=== PATIENT | female | born 1975 | race Caucasian/White ===

== ENCOUNTER 2023-05-18 04:34 | Emergency (ER) | payer OTHER, SELFPAY ==
[2023-05-18 04:38] VITALS: BP 159/100; PULSE 85; RESP 18; TEMP 35.7; O2SAT 99; BMI 25.1
--- NOTE | 2023-05-18 04:49 | ED_ITS ---
HPI - Extremity Problem General Chief complaint: Extremity Problem, Nontraumatic Stated complaint: SHOULDER PAIN Time Seen by Provider: 05/18/23 04:45 Source: patient Mode of arrival: walk-in Limitations: no limitations History of Present Illness HPI Narrative: presents complaining of pain left arm for past 4 days. Pain radiating from her neck down her left arm. Constant for past 4 days. not able to sleep tonight because of the pain. No associated weakness or chest pain/nausea. Not able to get comfortable tonight and came in no fever Related Data Home Medications Medication Instructions Recorded Confirmed No Known Home Medications 05/18/23 05/18/23 Allergies Allergy/AdvReac Type Severity Reaction Status Date / Time Penicillins Allergy Verified 05/18/23 04:42 Review of Systems ROS Status of ROS 10 or more systems reviewed and unremark able except as noted in history and below [facility] Social History Smoking status: Current every day smoker Exam Constitutional Vital Signs, click to edit/add: Last Vital Signs Temp 96.3 F L 05/18/23 04:38 Pulse 85 05/18/23 04:38 Resp 18 05/18/23 04:38 BP 159/100 H 05/18/23 04:38 Pulse Ox 99 05/18/23 04:38 O2 Del Method Room Air 05/18/23 04:38 Common normals: no apparent distress, average body habitus, oriented x3, no limitations, healthy appearing, alert and well nourished [facility] Common normals: normocephalic and head/scalp atraumatic Eye Common normals: PERRL and EOMs intact bilaterally Neck & C-Spine Other: mild tenderness left paracervical Respiratory Common normals: normal respiratory effort, no retractions, no use of accessory muscles and clear to auscultation bilaterally Cardio Common normals: regular rate, regular rhythm, S1 normal heart sound and S2 normal heart sound GI Common normals: Normal to inspection, nondistended, normoactive bowel sounds present and soft to palpation Extremity Common normals: normal to inspection and full ROM Neuro Common normals: oriented x3, CN's II-XII intact bilaterally, moves all extremities, no focal motor deficits and no sensory deficits noted Psych Appearance: grossly normal Course Vital Signs Vital signs: Vital Signs Temperature 96.3 F L 05/18/23 04:38 Pulse Rate 85 05/18/23 04:38 Respiratory Rate 18 05/18/23 04:38 Blood Pressure 159/100 H 05/18/23 04:38 Pulse Oximetry 99 05/18/23 04:38 Oxygen Delivery Method Room Air 05/18/23 04:38 Temperature 96.3 F L 05/18/23 04:38 Pulse Rate 85 05/18/23 04:38 Respiratory Rate 18 05/18/23 04:38 Blood Pressure 159/100 H 05/18/23 04:38 Pulse Oximetry 99 05/18/23 04:38 Oxygen Delivery Method Room Air 05/18/23 04:38 MDM - Extremity (Nontraumatic) MDM Narrative Medical decision making narrative: presents with left cervical radicular pain ongoing for past 4 days. No associated weakness. Burning pain. Treated with IV magnesium which help her to relax some but no significant improvement in the pain. labs unremarkable including inflammatory marker. Given dose of Lyrica and discharged home with a prescription for Lyrica and advised to followup with a family doctor Lab Data Labs: Lab Results 05/18/23 Range/Units 05:00 WBC 7.4 (4.0-11.0) 10^3/uL RBC 5.07 (4.20-5.40) 10^6/uL Hgb 16.3 H (12.0-16.0) g/dL Hct 48.6 H (36.0-48.0) % MCV 95.9 (81.0-99.0) fL MCH 32.1 (26.7-34.0) pg MCHC 33.5 (29.9-35.2) g/dL RDW 11.8 (11.0-15.0) % Plt Count 150 (150-450) 10^3/uL MPV 9.9 (9.5-13.5) fL Neut % (Auto) 70.9 (43.0-75.0) % Lymph % (Auto) 22.6 (20.5-60.0) % [place] % (Auto) 4.6 (1.7-12.0) % Eos % (Auto) 1.4 (0.9-7.0) % Baso % (Auto) 0.4 (0.2-2.0) % Neut # (Auto) 5.2 (1.4-6.5) 10^3/uL Lymph # (Auto) 1.7 (1.2-3.8) 10^3/uL [place] # (Auto) 0.3 (0.3-0.8) 10^3/uL Eos # (Auto) 0.1 (0.0-0.7) 10^3/uL Baso # (Auto) 0.0 (0.0-0.1) 10^3/uL Abs Immat Gran (auto) 0.01 (0.00-0.03) 10^3/uL Imm/Tot Granulo (auto) 0.1 (0.0-0.5) % Sodium 140 (136-145) mmol/L Potassium 4.3 (3.5-5.1) mmol/L Chloride 101 (98-107) mmol/L Carbon Dioxide 24.5 (21.0-32.0) mmol/L Anion Gap 18.8 BUN 14.0 (7.0-18.0) mg/dL Creatinine 0.85 (0.55-1.02) mg/dL Est GFR ( Amer) >60 (>=60) Est GFR (Non-Af Amer) >60 (>=60) BUN/Creatinine Ratio 16.5 Glucose 119 H (74-106) mg/dL Calcium 9.4 (8.5-10.1) mg/dL Magnesium 1.9 (1.8-2.4) mg/dL C-Reactive Protein <0.50 (<=0.50) mg/dL Discharge Plan Discharge Chief Complaint: Extremity Problem, Nontraumatic Clinical Impression: Cervical radiculopathy Patient Disposition: Home, Self-Care Condition: Good Prescriptions / Home Meds: No Action No Known Home Medications Instructions: Cervical Radiculopathy (ED) Additional Instructions: Follow up with Dr Kait Gutierrez twice daily. Referrals: Luis Armando Carballo MD [Physician] - As soon as possible Stand Alone Forms: Portal Instructions
[2023-05-18] MEDS: METHYLPREDNISOLONE SOD SUCC PF 125 MG/2 ML VIAL IVP (05:05)
[2023-05-18] MEDS: MAGNESIUM SULFATE IN WATER 2 GM/50 ML PREMIX IV (05:05)
[2023-05-18 05:08] LABS: Basophils Percent Auto 0.4 % (0.2-2.0); Eosinophils Absolute Auto 0.1 10^3/uL (0.0-0.7); Eosinophils Percent Auto 1.4 % (0.9-7.0); Hematocrit 48.6 % (36.0-48.0); Hemoglobin 16.3 g/dL (12.0-16.0); Immature Granulocytes Abs Auto 0.01 10^3/uL (0.00-0.03); Immature Granulocytes Pct Auto 0.1 % (0.0-0.5); Lymphocytes Absolute Auto 1.7 10^3/uL (1.2-3.8); Lymphocytes Percent Auto 22.6 % (20.5-60.0); Mean Corpuscular HGB Conc 33.5 g/dL (29.9-35.2); Mean Corpuscular Hemoglobin 32.1 pg (26.7-34.0); Mean Corpuscular Volume 95.9 fL (81.0-99.0); Mean Platelet Volume 9.9 fL (9.5-13.5); Monocytes Absolute Auto 0.3 10^3/uL (0.3-0.8); Monocytes Percent Auto 4.6 % (1.7-12.0); Neutrophils Absolute Auto 5.2 10^3/uL (1.4-6.5); Neutrophils Percent Auto 70.9 % (43.0-75.0); Platelet Count 150 10^3/uL (150-450); Red Blood Count 5.07 10^6/uL (4.20-5.40); Red Cell Distribution Width 11.8 % (11.0-15.0); White Blood Count 7.4 10^3/uL (4.0-11.0)
[2023-05-18 05:20] LABS: Anion Gap 18.8; BUN Creatinine Ratio 16.5; Calcium 9.4 mg/dL (8.5-10.1); Carbon Dioxide 24.5 mmol/L (21.0-32.0); Chloride 101 mmol/L (98-107); Estimated GFR (African America >60 (>=60); Estimated GFR (Non-African Ame >60 (>=60); Glucose 119 mg/dL (74-106); Magnesium 1.9 mg/dL (1.8-2.4); Potassium 4.3 mmol/L (3.5-5.1); Sodium 140 mmol/L (136-145)
[2023-05-18 05:23] LABS: C Reactive Protein <0.50 mg/dL (<=0.50)
[2023-05-18 06:30] VITALS: BP 136/80; PULSE 68; RESP 16; TEMP 36.6; O2SAT 99
[2023-05-18] MEDS: PREGABALIN 50 MG CAPSULE PO (06:42)
== END 2023-05-18 06:45 | disposition home or self-care (01) ==
PROVIDERS: Emergency Provider Internal Medicine
DX: M54.12 Radiculopathy, cervical region (principal); F17.210 Nicotine dependence, cigarettes, uncomplicated
CPT/HCPCS: 36415; 80048; 83735; 85025; 86140; 96365; 96375; 99284; J2930

== ENCOUNTER 2023-05-27 13:56 | Outpatient (OUT) | payer OTHER, SELFPAY ==
--- NOTE | 2023-05-27 | XR_ITS ---
The [address] [address] Patient Name: BELL BANKS MRN: [id number] date: 1975 Sex: F Assigned Patient Location: [facility] Current Patient Location: [facility] Accession/Order Number: [id number] Exam Date: 05/27/2023 14:05 Report Date: 05/29/2023 08:27 At the request of: NITESH CHRISTIAN Procedure: XR cervical spine 2-3V EXAM: XR cervical spine 2-3V HISTORY: R20.0. ANESTHESIA OF SKIN. COMPARISON: None. TECHNIQUE: 3 views of the cervical spine were obtained to include AP, lateral, and odontoid views. FINDINGS: Vertebral body heights are grossly well-maintained. Mild to moderate disc space narrowing at C5-C6 with mild narrowing at C6-C7. Moderate anterior spurring at C5-C6 and C6-C7 with mild to moderate anterior spurring at C4-C5. Mild posterior spurring at C5-C6. Spinolaminar line appears grossly intact. Mild degenerative facet changes bilaterally. Atlantoaxial interval appears grossly unremarkable. No definite acute fracture or dislocation. Slight 1 mm posterior offset of C5 vertebral body upon C6 likely related to ligament laxity/degenerative change. XR/XR cervical spine 2-3V IMPRESSION: Cervical spine study demonstrates degenerative changes as described. Follow-up as needed. Electronically authenticated by: ALCIDES PA Date: 05/29/2023 08:27
--- OUTSIDE RECORDS SUMMARY | 2023-05-27 13:59 | XMS_ITS | CCD ---
Author Name Unknown Address [address] [place] [address] Organization [facility] Care Team Providers Care [place] Worker Helper Name Role Phone REQUEST, DR YELITZA LISTED Primary Care Unavaila susan PETIT, DR FATOU Blair Admitting Unavailabl e DAMASO, DR FATOU Blair Attending Unavailabl e DAMASO, DR FATOU Blair Consulting Unavailabl e RICH II, BELLA Consulting Unavailable KOMA, ABDI Consulting Unavailable REQUEST, DR TORRE LISTED Primary Care Unavaila ble RUBA, DR MCCARTHY Admitting Unavailable WEST, DR GERARDO Yousif Consulting Unavailable RUBA, DR MCCARTHY Attending Unavailable RUBA, DR MCCARTHY Consulting Unavailable REQUEST, DR TORRE LISTED Primary Care Unavaila ble RUBA, DR MCCARTHY Admitting Unavailable RUBA, DR MCCARTHY Attending Unavailable RUBA, DR MCCARTHY Consulting Unavailable REQUEST, DR TORRE LISTED Primary Care Alannaha susan PETIT, DR FATOU Blair Admitting Unavailabl e DAMASO, DR FATOU Blair Attending Unavailabl e DAMASO, DR FATOU Blair Consulting Unavailabl e Allergies Allergy Classification Reported Allergen(s) Allergy Type Date of Onset Reaction(s) Facility (1 source) Penicillins Drug allergy (disorder) The [facility] Problems Active Problems Problem Classification Problem Date Documented Da te Episodic/Chronic Abdominal pain (8 sources) Generalized abdominal pain; Translations: [Unspecified abdominal pain] Onset: 11-10-2021 Episodic Diverticulosis and diverticulitis (1 source) Diverticulosis of large intestine without perforation or abscess without bleeding; Translations: [DVRTCLOS LG INT NO PERF/ABSC W/O BL] Onset: 03-23-2022 Chronic Gastrointestinal hemorrhage (1 source) Hemorrhage of anus and rectum; Translations: [HEMORRHAGE OF ANUS AND RECTUM] Onset: 03-23-2022 Episodic Hemorrhoids (1 source) Other hemorrhoids; Translations: [OTHER HEMORRHOIDS] Onset: 03-23-2022 Episodic Immunizations and screening for infectious disease (1 source) Encounter for screening for human papillomavirus (HPV); Translations: [ENC SCREENING HUMAN PAPILLOMAVIRUS] Onset: 12-29-2021 Episodic Other and unspecified benign neoplasm (1 source) Benign neoplasm of sigmoid colon; Translations: [BENIGN NEOPLASM OF SIGMOID COLON] Onset: 03-23-2022 Episodic Other and unspecified benign neoplasm (1 source) Benign neoplasm of colon, unspecified; Translations: [BENIGN NEOPLASM COLON UNSPECIFIED] Onset: 03-23-2022 Episodic Other screening for suspected conditions (not mental disorders or infectious disease) (4 sources) Encounter for screening for malignant neoplasm of cervix; Translations: [ENC SCREENING MALIG NEOPLASM CERV] Onset: 12-28-2021 Episodic Substance-related disorders (1 source) Nicotine dependence, cigarettes, uncomplicated; Translations: [NICOTINE DEPEND CIGARETTES UNCOMP] Onset: 03-23-2022 Chronic Unclassified (1 source) CONTACT W/AND (SUSP) EXPOS COVID-19; Translations: [CONTACT W/AND (SUSP) EXPOS COVID-19] Onset: 03-17-2022 Past or Other Problems Problem Classification Problem Date Documented Date Episodic/Chronic Other female genital disorders (1 source) Noninflammatory disorder of uterus, unspecified; Translations: [NONINFLAMMATORY DISORDER UTERUS UNS] Onset: 11-11-2021 Episodic Ovarian cyst (1 source) Other ovarian cyst, left side; Translations: [OTHER OVARIAN CYST LEFT SIDE] Onset: 11-11-2021 Episodic Results Test Name Value Interpretation Reference Range Facil ity PREG HCG QUALon 03-16-2022 , QUAL Negative Normal NEGATIVE [facility] Comment on above: Performed By: #### P REG #### [facility] [address] [address] [address] Gregg Vale Covid-19 PCR (CVDTBH)on 02-12 SARS-CoV-2 (COVID-19) RNA KELSEA+probe Ql (Unsp spec) Not detected Normal NOT DETECTED [facility] Comment on above: Result Comment: This test is not yet approved or cleared by the [place] FDA. When there are no FDA-approved or cleared tests available, and other criteria are met, FDA can make tests available under an emergency access mechanism called an Emergency Use Authorization (EUA). The EUA for this test is supported by the [place] of Health and Human Service's (HHS's) declaration that circumstances exist to justify the emergency use of in vitro diagnostics for the detection and/or diagnosis of the virus that causes COVID-19. This EUA will remain in effect (meaning this test can be used) for the duration of the COVID-19 declaration justifying emergency of IVDs, unless it is terminated or revoked by FDA (after which the test may no longer be used). When diagnostic testing is negative, the possibility of a false negative should be considered in the context of a patient's recent exposures and the presence of clinical signs and symptoms consistent with SARS-CoV-2. Performed By: #### C VDTB #### [facility] [address] [place] [address] Dr. Gregg Vale PAP ACOG PANEL 2: 30 to 65on 01-04-2022 . . Normal [facility] Comment on above: Result Comment: Perf ormed at: WB Performed By: #### [id number] #### [facility] [address] [place] [address] Dr. Gregg Vale Age Gdln ACOG Testing - Normal [facility] Comment on above: Performed By: #### [id number] #### [facility] [address] [place] [address] Dr. Gregg Vale DIAGNOSIS: Comment Normal [facility] Comment on above: Result Comment: NEGA TIVE FOR INTRAEPITHELIAL LESION OR MALIGNANCY. Performed at: WB Performed By: #### [id number] #### [facility] [address] [place] [address] Dr. Gregg Vale HPV Aptima Negative Normal Negative [facility] Comment on above: Result Comment: This nucleic acid amplification test detects fourteen high-risk HPV types (16,18,31,33,35,39,45,51,52,56,58,59,66,68) without differentiation. Performed at: =G Performed By: #### [id number] #### [facility] [address] [place] [address] Dr. Gregg Vale Methodology: Comment Normal [facility] Comment on above: Result Comment: This liquid based ThinPrep(R) pap test was screened with the use of an image guided system. Performed at: WB Performed By: #### [id number] #### [facility] [address] [place] [address] Dr. Gregg Vale Note: Comment Normal [facility] Comment on above: Result Comment: The Pap smear is a screening test designed to aid in the detection of premalignant and malignant conditions of the uterine cervix. It is not a diagnostic procedure and should not be used as the sole means of detecting cervical cancer. Both false-positive and false-negative reports do occur. . Performed at: WB Performed By: #### [id number] #### [facility] [address] [place] [address] Dr. Gregg Vale Performed by: Comment Normal [facility] Comment on above: Result Comment: Arabella Escamilla, Plate Take Out Worker (ASCP) Performed at: WB Performed By: #### [id number] #### [facility] [address] [place] [address] Dr. Gregg Vale Specimen adequacy: Comment Normal [facility] Comment on above: Result Comment: Sati sfactory for evaluation. Endocervical and/or squamous metaplastic cells (endocervical component) are present. Performed at: WB Performed By: #### [id number] #### [facility] [address] [place] [address] Dr. Gregg Vale US PELVIS AND TRANSVAGon US PELVIS AND TRANSVAG EXAMINATION: US PELVIS AND TRANSVAG HISTORY: Abdominal pain COMPARISON: No relevant comparison available. FINDINGS: The uterus is normal in size, contour and echotexture, anteverted. Uterus measures 9.6 x 5.7 x 6.8 cm. Area of hypoechogenicity along the posterior myometrium measuring 0.7 cm The endometrium measures 1.3 cm. The right ovary is normal in size and contour measuring 2.2 x 1.2 x 0.9 cm. The left ovary measures 3.4 x 1.9 x 2.1 cm. Area of anechoic echogenicity measuring 1.8 x 1.7 x 1.5 cm, simple cyst No free fluid IMPRESSION: 0.7 cm posterior myometrial mass, small fibroid suspected 1.8 cm left ovarian simple cyst Electronically authenticated by: GERARDO CHAVIRA Date: 2021-11-10 14:15 Normal [facility] Encounters Encounter Date Encounter Type Care Provider Facility Start: 03-17-2022 Encounter for preprocedural laboratory examination DR FATOU PETIT [facility] Start: 03-16-2022 End: 03-16-[address] NONE LISTED REQUEST Facility:[facility] Start: 03-11-2022 End: 03-12-[address] NONE LISTED REQUEST Facility:[facility] Start: 03-11-2022 End: 03-12-2022 Encounter for preprocedural laboratory examination NONE LISTED REQUEST Facility: Start: 12-28-2021 End: 12-28-[address] NONE LISTED REQUEST Facility: Start: 11-10-2021 End: 11-11-[address] NONE LISTED REQUEST Facility: Payers Date Payer Category Payer Unknown [id number] 1975 Unknown [id number] 1975 Unknown [id number] 1975 Unknown [id number] 1961 Private Health Insurance [id number] Summary Purpose Family History No Family History Records Found Advance Directives No Advanced Directives Records Found Additional Source Comments INFORMATION SOURCE (unrecogn ized section and content) DATE CREATED AUTHOR 03/24/[address] [facility] FOR RECORDS PERTAINING TO PATIENTS WHO ARE OR HAVE BEEN ENROLLED IN A CHEMICAL DEPENDENCY/SUBSTANCEABUSE PROGRAM, SOME INFORMATION MAY BE OMITTED. This clinical summary was aggregated from multiple sources. Caution should be exercised in using it in the provision of clinical care. This summary normalizes information from multiple sources, and as a consequence, information in this document may materially change the coding, format and clinical context of patient data. In addition, data may be omitted in some cases. CLINICAL DECISIONS SHOULD BE BASED ON THE PRIMARY CLINICAL RECORDS. [facility] [employer] [facility]. provides no warranty or guarantee of the accuracy or completeness of information in this document.
== END 2023-05-27 13:57 | disposition home or self-care (01) ==
PROVIDERS: PCP Family Medicine; Visit Provider Family Medicine
DX: R20.0 Anesthesia of skin (principal); M50.30 Other cervical disc degeneration, unspecified cervical region
CPT/HCPCS: 72040

== ENCOUNTER 2023-06-12 10:26 | Outpatient (OUT) | payer OTHER, SELFPAY ==
--- NOTE | 2023-06-12 10:30 | MR_ITS ---
[address] [address] Patient Name: BELL BANKS MRN: [id number] date: 1975 Sex: F Assigned Patient Location: MRI Current Patient Location: MRI Accession/Order Number: [id number] Exam Date: 06/12/2023 10:45 Report Date: 06/12/2023 12:40 At the request of: NITESH CHRISTIAN Procedure: MR cervical spine wo con EXAM: MR cervical spine wo con. HISTORY: Anesthesia of skin R20.0, paresthesia of skin R20.0. COMPARISON: 05/27/2023 TECHNIQUE: MRI images obtained with multiple sequences. Noncontrast MRI of the cervical spine. FINDINGS: Visualized brain parenchymal posterior fossa contents are unremarkable. No abnormal signal of the cervical spinal cord. Craniocervical junction is unremarkable. Prevertebral soft tissues are normal. C2-C3: No spinal canal stenosis or neural foraminal stenosis. Facet joints are normal. C3-C4: Mild broad-based posterior disc bulge. Moderate bilateral neural foraminal narrowing. Facet joints are normal. C4-C5: Intervertebral disc degeneration. Broad-based posterior disc bulge. No spinal canal stenosis. Facet joints are normal. Bilateral mild neural foraminal narrowing. C5-C6: Intervertebral disc degeneration. Broad-based posterior disc bulge. Bilateral mild neural foraminal narrowing. Facet joints are normal. C6-C7: Intervertebral disc degeneration. Central posterior disc protrusion. Bilateral mild to moderate neural foraminal narrowing. Facet joints are normal. C7-T1: Intervertebral disc degeneration. Central posterior disc protrusion. No spinal canal stenosis. Moderate left neural foraminal narrowing. Right mild neural foraminal narrowing. Facet joints are normal. T1-T2: Mild disc degeneration. Central posterior disc protrusion. No spinal canal stenosis. No neural foraminal stenosis. T2-T3: Bilateral mild neural foraminal narrowing. No spinal canal stenosis. T3-T4 and T4-T5: No spinal canal stenosis or neural foraminal stenosis. No acute bone marrow edema of the cervical spine. No cervical lymphadenopathy. MR/MR cervical spine wo con IMPRESSION: 1. Multilevel disc degeneration, most prominent at C4-C5, C5-C6 and C6-C7 as described above. 2. No significant spinal canal stenosis. 3. No cervical lymphadenopathy. 4. No acute fractures. Electronically authenticated by: JORDAN SHEETS Date: 06/12/2023 12:40
--- OUTSIDE RECORDS SUMMARY | 2023-06-12 10:35 | XMS_ITS | CCD ---
Author Organization [facility] Care Team Providers Care Legal Records Clerk Name Role Phone REQUEST, DR NONE LISTED Primary Care Adelaida PETIT, DR FATOU Blair Admitting Unavailabl e DAMASO, DR FATOU Blair Attending Unavailabl e DAMASO, DR FATOU Blair Consulting Unavailabl e RICH II, BELLA Consulting Unavailable KOMA, ABDI Consulting Unavailable REQUEST, NONE LISTED Primary Care Unavaila ble RUBA, DR MCCARTHY Admitting Unavailable WEST, DR GERARDO Yousif Consulting Unavailable RUBA, DR MCCARTHY Attending Unavailable RUBA, DR MCCARTHY Consulting Unavailable REQUEST, NONE LISTED Primary Care Unavaila ble RUBA, DR MCCARTHY Admitting Unavailable RUBA, DR MCCARTHY Attending Unavailable RUBA, DR MCCARTHY Consulting Unavailable REQUEST, DR TORRE LISTED Primary Care Adelaida PETIT, DR FATOU Blair Admitting Unavailabl e DAMASO, DR FATOU Blair Attending Unavailabl e DAMASO, DR FATOU Blair Consulting Unavailabl e Allergies Allergy Classification Reported Allergen(s) Allergy Type Date of Onset Reaction(s) Facility (1 source) Penicillins Drug allergy (disorder) [facility] Repository Problems Active Problems Problem Classification Problem [...] 03-16-2022 , QUAL Negative Normal NEGATIVE The [facility] Comment on above: Performed By: #### P REG #### [facility] [address] [address] [address] Gregg Vale Covid-19 PCR (CVDTBH)on 02-12 SARS-CoV-2 (COVID-19) RNA KELSEA+probe Ql (Unsp spec) Not detected Normal NOT DETECTED The [facility] Comment on above: Result Comment: This test is not yet approved or cleared by the [place] FDA. When there are no FDA-approved or cleared tests available, and other criteria are met, FDA can make tests available under an emergency access mechanism called an Emergency Use Authorization (EUA). The EUA for this test is supported by the [place] Inspector of Health and Human Service's (HHS's) declaration [...] SARS-CoV-2. Performed By: #### C VDTB #### [facility] [address] [place] [address] Dr. Gregg Vale PAP ACOG PANEL 2: 30 to 65on 01-04-2022 . . Normal [facility] Comment on above: Result Comment: Perf ormed at: WB Performed By: #### [id number] #### [facility] [address] [place] [address] Dr. Gregg Vale Age Gdln ACOG Testing -63 Normal [facility] Comment on above: Performed By: #### 4 [id number] #### [facility] [address] [place] [address] Dr. Gregg Vale DIAGNOSIS: Comment Normal [facility] Comment on above: Result Comment: NEGA TIVE FOR INTRAEPITHELIAL LESION OR MALIGNANCY. Performed at: WB Performed By: #### [id number] #### [facility] [address] [place] [address] Dr. Gregg Vale HPV Aptima Negative Normal Negative [facility] Comment on above: Result Comment: This nucleic acid amplification test detects fourteen high-risk HPV types (16,18,31,33,35,39,45,51,52,56,58,59,66,68) without differentiation. Performed at: =G Performed By: #### [id number] #### [facility] [address] [place] [address] Dr. Gregg Vale Methodology: Comment Normal [facility] Comment on above: Result Comment: This liquid based ThinPrep(R) pap test was screened with the use of an image guided system. Performed at: WB Performed By: #### [id number] #### [facility] [address] [place] [address] Dr. Gregg Vale Note: Comment Normal [facility] Comment on above: Result Comment: The Pap smear is a screening test designed to aid in the detection of premalignant and malignant conditions of the uterine cervix. It is not a diagnostic procedure and should not be used as the sole means of detecting cervical cancer. Both false-positive and false-negative reports do occur. . Performed at: WB Performed By: #### [id number] #### [facility] [address] [address] [address] Gregg Vale Performed by: Comment Normal [facility] Comment on above: Result Comment: Arabella Escamilla, Coagulation Operator (ASCP) Performed at: WB Performed By: #### 4 [id number] #### [facility] [address] [place] [address] Dr. Gregg Vale Specimen adequacy: Comment Normal [facility] Comment on above: Result Comment: Sati sfactory for evaluation. Endocervical and/or squamous metaplastic cells (endocervical component) are present. Performed at: WB Performed By: #### [id number] #### [facility] [address] [place] [address] Dr. Gregg Vale US PELVIS AND TRANSVAGon [...] by: GERARDO CHAVIRA Date: 2021-11-10 14:15 Normal [facility] Encounters Encounter Date Encounter Type Care Provider Facility Start: 03-17-2022 Encounter for preprocedural laboratory examination DR FAOTU PETIT [facility] Start: 03-16-2022 End: 03-16-[address] NONE LISTED REQUEST Facility:[facility] Start: 03-11-2022 End: 03-12-[address] NONE LISTED REQUEST Facility:[facility] Start: 03-11-2022 End: 03-12-2022 Encounter for preprocedural laboratory examination DR NONE LISTED REQUEST Facility:[facility] Start: 12-28-2021 End: 12-28-[address] NONE LISTED REQUEST Facility:[facility] Start: 11-10-2021 End: 11-11-[address] NONE LISTED REQUEST Facility: Payers Date Payer Category Payer Unknown [id number] 2.16.84 [id number] 1975 Unknown [id number] 2.16.84 [id number] 1975 Unknown [id number] 2.16.84 [id number] 1973 Unknown [id number] 2.16.84 [id number] 1961 Private Health Insurance [id number] Summary Purpose Family History No Family History Records Found Advance Directives No Advanced Directives Records Found Additional Source Comments INFORMATION SOURCE (unrecogn ized section and content) DATE CREATED AUTHOR 03/24/2022 The [facility] FOR RECORDS PERTAINING TO PATIENTS WHO [...] BE BASED ON THE PRIMARY CLINICAL RECORDS. [facility]. provides no warranty or guarantee of the accuracy or completeness of information in this document.
== END 2023-06-12 10:27 | disposition home or self-care (01) ==
LOC: MRI 10:26
PROVIDERS: PCP Family Medicine; Visit Provider Family Medicine
DX: Z00.00 Encounter for general adult medical examination without abnormal findings (principal); R20.0 Anesthesia of skin; R20.2 Paresthesia of skin; M50.321 Other cervical disc degeneration at C4-C5 level; M50.322 Other cervical disc degeneration at C5-C6 level; M50.323 Other cervical disc degeneration at C6-C7 level
CPT/HCPCS: 36415; 72141; 80053; 80061; 83036; 83540; 84436; 84443; 84481; 85025

== ENCOUNTER 2023-06-12 11:36 | Outpatient (OUT) | payer OTHER, SELFPAY ==
--- OUTSIDE RECORDS SUMMARY | 2023-06-12 11:57 | XMS_ITS | CCD ---
Author Organization [facility] Care Team Providers Care Catshovel Driver Name Role Phone REQUEST, DR NONE LISTED [...] (1 source) Penicillins Drug allergy (disorder) The [facility] Repository Problems Active Problems Problem Classification Problem [...] 03-16-2022 , QUAL Negative Normal NEGATIVE The [facility] Comment on above: Performed By: #### P REG #### [facility] [address] [address] [address] Gregg Vale Covid-19 PCR (CVDTBH)on 02-12 SARS-CoV-2 (COVID-19) RNA KELSEA+probe Ql (Unsp spec) Not detected Normal NOT DETECTED The [facility] Comment on above: Result Comment: This test is not yet approved or cleared by the [place] FDA. When there are no FDA-approved or cleared tests available, and other criteria are met, FDA can make tests available under an emergency access mechanism called an Emergency Use Authorization (EUA). The EUA for this test is supported by the [place] Manager of Health and Human Service's (HHS's) declaration [...] SARS-CoV-2. Performed By: #### C VDTB #### [facility] [address] [place] [address] Dr. Gregg Vale PAP ACOG PANEL 2: 30 to 65on 01-04-2022 . . Normal [facility] Comment on above: Result Comment: Perf ormed at: WB Performed By: #### 4 [id number] #### [facility] [address] [place] [address] Dr. Gregg Vale Age Gdln ACOG Testing -63 Normal [facility] Comment on above: Performed By: #### 4 [id number] #### [facility] [address] [place] [address] Dr. Gregg Vale DIAGNOSIS: Comment Normal [facility] Comment on above: Result Comment: NEGA TIVE FOR INTRAEPITHELIAL LESION OR MALIGNANCY. Performed at: WB Performed By: #### 4 [id number] #### [facility] [address] [place] [address] Dr. Gregg Vale HPV Aptima Negative Normal Negative [facility] Comment on above: Result Comment: This nucleic acid amplification test detects fourteen high-risk HPV types (16,18,31,33,35,39,45,51,52,56,58,59,66,68) without differentiation. Performed at: =G Performed By: #### 4 [id number] #### [facility] [address] [place] [address] Dr. Gregg Vale Methodology: Comment Normal [facility] Comment on above: Result Comment: This liquid based ThinPrep(R) pap test was screened with the use of an image guided system. Performed at: WB Performed By: #### 4 [id number] #### [facility] [address] [place] [address] Dr. Gregg Vale Note: Comment Normal [facility] Comment on above: Result Comment: The Pap smear is a screening test designed to aid in the detection of premalignant and malignant conditions of the uterine cervix. It is not a diagnostic procedure and should not be used as the sole means of detecting cervical cancer. Both false-positive and false-negative reports do occur. . Performed at: WB Performed By: #### 4 [id number] #### [facility] [address] [address] [address] Gregg Vale Performed by: Comment Normal [facility] Comment on above: Result Comment: Arabella Escamilla, Residential Solar Sales Consultant (ASCP) Performed at: WB Performed By: #### 4 [id number] #### [facility] [address] [place] [address] Dr. Gregg Vale Specimen adequacy: Comment Normal [facility] Comment on above: Result Comment: Sati sfactory for evaluation. Endocervical and/or squamous metaplastic cells (endocervical component) are present. Performed at: WB Performed By: #### 4 [id number] #### [facility] [address] [place] [address] Dr. Gregg Vale US PELVIS AND TRANSVAGon [...] by: GERARDO CHAVIRA Date: 2021-11-10 14:15 Normal [facility] Encounters Encounter Date Encounter Type Care Provider Facility Start: 03-17-2022 Encounter for preprocedural laboratory examination DR FATOU PETIT [facility] Start: 03-16-2022 End: 03-16-[address] NONE LISTED REQUEST Facility:[facility] Start: 03-11-2022 End: 03-12-[address] NONE LISTED REQUEST Facility:[facility] Start: 03-11-2022 End: 03-12-2022 Encounter for preprocedural laboratory examination DR NONE LISTED REQUEST Facility:[facility] Start: 12-28-2021 End: 12-28-[address] NONE LISTED REQUEST Facility:[facility] Start: 11-10-2021 End: 11-11-[address] NONE LISTED REQUEST Facility: Payers Date Payer Category Payer Unknown [id number] 2.16.84 [id number] 1975 Unknown [id number] 2.16.84 [id number] 1975 Unknown [id number] 2.16.84 [id number] 1973 Unknown [id number] 2.16.84 [id number] 1961 Private Health Insurance [id number] Summary Purpose Family History No Family History Records Found Advance Directives No Advanced Directives Records Found Additional Source Comments INFORMATION SOURCE (unrecogn ized section and content) DATE CREATED AUTHOR 03/24/[address] [facility] FOR RECORDS PERTAINING TO PATIENTS WHO [...] BE BASED ON THE PRIMARY CLINICAL RECORDS. [facility]. provides no warranty or guarantee of the accuracy or completeness of information in this document.
[2023-06-12 12:01] LABS: Basophils Percent Auto 0.6 % (0.2-2.0); Eosinophils Absolute Auto 0.1 10^3/uL (0.0-0.7); Eosinophils Percent Auto 0.7 % (0.9-7.0); Hematocrit 44.1 % (36.0-48.0); Hemoglobin 14.6 g/dL (12.0-16.0); Immature Granulocytes Abs Auto 0.02 10^3/uL (0.00-0.03); Immature Granulocytes Pct Auto 0.3 % (0.0-0.5); Lymphocytes Absolute Auto 1.3 10^3/uL (1.2-3.8); Lymphocytes Percent Auto 19.8 % (20.5-60.0); Mean Corpuscular HGB Conc 33.1 g/dL (29.9-35.2); Mean Corpuscular Hemoglobin 32.7 pg (26.7-34.0); Mean Corpuscular Volume 98.9 fL (81.0-99.0); Mean Platelet Volume 9.5 fL (9.5-13.5); Monocytes Absolute Auto 0.4 10^3/uL (0.3-0.8); Monocytes Percent Auto 5.7 % (1.7-12.0); Neutrophils Absolute Auto 4.9 10^3/uL (1.4-6.5); Neutrophils Percent Auto 72.9 % (43.0-75.0); Platelet Count 142 10^3/uL (150-450); Red Blood Count 4.46 10^6/uL (4.20-5.40); Red Cell Distribution Width 12.1 % (11.0-15.0); White Blood Count 6.7 10^3/uL (4.0-11.0)
[2023-06-12 12:05] LABS: Estimated Average Glucose 105 mg/dL; Glycohemoglobin A1C 5.3 % (4.5-6.2)
[2023-06-12 12:19] LABS: Alanine Aminotransferase 17 U/L (14-59); Albumin Level 3.5 g/dL (3.4-5.0); Alkaline Phosphatase 73 U/L (46-116); Anion Gap 12.8; Aspartate Amino Transferase 16 U/L (15-37); Bilirubin Total 0.6 mg/dL (0.2-1.0); Calcium 8.8 mg/dL (8.5-10.1); Carbon Dioxide 28.1 mmol/L (21.0-32.0); Chloride 104 mmol/L (98-107); Chol HDL Ratio 4.1; Cholesterol 231 mg/dL (<=200); Estimated GFR (African America >60 (>=60); Estimated GFR (Non-African Ame >60 (>=60); Globulin 3.5 g/dL; Glucose 91 mg/dL (74-106); HDL Cholesterol 56 mg/dL (40-60); Potassium 3.9 mmol/L (3.5-5.1); Sodium 141 mmol/L (136-145); Thyroid Stimulating Hormone 1.905 uIU/mL (0.358-3.740); Triglycerides 168 mg/dL (<=150); VLDL CHOLESTEROL 33.6 mg/dL
== END 2023-06-12 11:37 | disposition home or self-care (01) ==
LOC: LAB 11:36
PROVIDERS: PCP Family Medicine; Visit Provider Family Medicine
DX: Z00.00 Encounter for general adult medical examination without abnormal findings (principal)
CPT/HCPCS: 36415; 80053; 80061; 83036; 83540; 84436; 84443; 84480; 84481; 85025

== ENCOUNTER 2023-06-30 10:23 | Outpatient (OUT) | payer OTHER, SELFPAY ==
--- NOTE | 2023-06-30 10:27 | MM_ITS ---
Patient Name: BELL BANKS MR#: [id number] : 1975 Exam Date: 06/30/2023 Ordering Doctor: DR Luis Armando Carballo . RADIOLOGY REPORT PROCEDURE: MM TOMOSYNTHESIS SCREENING BI COMPARISON: None. INDICATIONS: Screening Calculator Name NCI Breast Cancer Risk Assessment Tool 5 Year Breast Cancer Risk 0.70% Lifetime Breast Cancer Risk 6.50% Personal Breast Cancer No Personal Ovarian Cancer No Treatments None Family Cancers None LOCATION: The [facility] BREAST COMPOSITION: The breasts are heterogeneously dense,which may obscure small masses. FINDINGS: DIAGNOSTIC CATEGORY 1--NEGATIVE. RIGHT BREAST: No significant suspicious finding. LEFT BREAST: No significant suspicious finding. RECOMMENDATIONS: ROUTINE MAMMOGRAM AND CLINICAL EVALUATION IN 12 MONTHS. PLEASE NOTE: A NORMAL MAMMOGRAM DOES NOT EXCLUDE THE POSSIBILITY OF BREAST CANCER. A CLINICALLY SUSPICIOUS PALPABLE LUMP SHOULD BE BIOPSIED. Dictated by: Everardo Emerson M.D. on 06/30/2023 at 15:15 Approved by: Everardo Emerson M.D. on 06/30/2023 at 15:17
== END 2023-06-30 10:24 | disposition home or self-care (01) ==
LOC: MAMMO 10:23
PROVIDERS: PCP Family Medicine; Visit Provider Family Medicine
DX: Z12.31 Encounter for screening mammogram for malignant neoplasm of breast (principal)
CPT/HCPCS: 77063; 77067

== ENCOUNTER 2023-10-09 14:36 | Outpatient (OUT) | payer OTHER, SELFPAY ==
--- NOTE | 2023-10-09 15:50 | P.CN_ITS ---
Consult Note: HPI Data of Consult Patient: new to practice Consult date: 10/09/23 Requesting Physician: Lg Green MD Primary Care Provider: Luis Armando Carballo MD Consult Narrative Reason for consult: neck, left arm pain Narrative: 48yof who presents for evaluation. longstanding history of neck and left arm pain. was evaluated by surgeon, who recommended surgery, but she would like to avoid if possible. imaging reviewed, which shows multilevel disc bulging and resultant stenosis from c4 to c7. has engaged in chiropractic therapy, but this has exacerbated her symptoms. continues in a series of provider directed home exercises >6 weeks, without benefit. uses meloxicam and zanaflex. denies adverse med side effects. cc:: CC: Lg Green MD Review of Systems ROS Status of ROS 10 or more systems reviewed and unremark able except as noted in history and below [facility] Medical History (Updated 10/09/23 @ 15:56 by Lg Green MD) Degenerative disc disease Surgical History History of endometrial ablation ?Z98.890 - Other specified postprocedural states (ICD-10) Social History Smoking status: Current every day smoker Meds Home Medications and Allergies Home Medications ?Medication ?Instructions ?Recorded ?Confirmed ?Type meloxicam 15 mg tablet 15 mg PO DAILY 10/09/23 10/09/23 History tizanidine 4 mg tablet 8 mg PO BEDTIME PRN muscle 10/09/23 10/09/23 History spasticity Allergies Allergy/AdvReac Type Severity Reaction Status Date / Time Penicillins Allergy Verified 05/18/23 04:42 Exam Narrative Exam Narrative: Psych-alert and oriented x 3.? Attentive and appropriate, constitutionally normal, displays normal mood and affect per situation.? There are no obvious deficits in memory, reasoning, or intellect.? Skin-no obvious rashes, bruising, or erythema noted to the patient's area of pain.? Extremities-upper extremities are warm with minimal edema and palpable pulses. Cervical- tenderness to palpation noted in the cervical spine and paraspinal musculature.? Pain is elicited with flexion, extension, and lateral rotation of the cervical spine.? Range of motion is diminished due to pain. Facet loading maneuvers are positive.? Strength-unremarkable and within normal limits Sensory-no notable sensory deficits in the bilateral upper extremities to touch or pinprick with the exception to decreased sensation to the left C4, 5, 6, 7 dermatomal distribution.? Coordination remains intact.? Gait remains non-antalgic. Assessment and Plan Assessment and Plan (1) Cervical radiculopathy: (2) Cervical stenosis of spinal canal: Plan 48yof who presents for evaluation. failed conservative measures, as noted. imaging reviewed, as noted. given symptoms and imaging, prudent to attempt left c5-6, 6-7 tfesi under fluoroscopic guidance. she is in agreement. meds reviewed, no changes. follow up after procedure.
== END 2023-10-09 14:37 | disposition home or self-care (01) ==
LOC: PM 14:37
PROVIDERS: PCP Family Medicine; Visit Provider Anesthesiology
DX: M54.12 Radiculopathy, cervical region (principal); M48.02 Spinal stenosis, cervical region
CPT/HCPCS: G0463

== ENCOUNTER 2023-10-12 12:21 | Outpatient (RCR) | payer OTHER, SELFPAY | END 2023-11-07 14:19 | disposition home or self-care (01) | LOC: PT 12:21 | PROVIDERS: PCP Family Medicine | DX: M54.12 Radiculopathy, cervical region (principal) | CPT/HCPCS: 97012; 97110; 97161 ==

== ENCOUNTER 2023-10-23 08:54 | Day surgery (SDC) | payer OTHER, SELFPAY ==
--- OUTSIDE RECORDS SUMMARY | 2023-10-23 09:13 | XMS_ITS | CCD ---
Author Organization [facility] Care Team Providers Care Automobile Service Writer Name Role Phone REQUEST, DR NONE LISTED Primary Care Unavaila susan PETIT, DR FATOU Blair Admitting Unavailabl omega PETIT, DR FATOU Blair Attending Unavailrito e DAMASO, DR FATOU Blair Consulting Unavailrito e RICH II, BELLA Consulting Unavailable AMARA, ABDI Consulting Unavailable REQUEST, DR TORRE LISTED Primary Care Unavaila ble RUBA, DR MCCARTHY Admitting Unavailable WEST, DR GERARDO Yousif Consulting Unavailable RUBA, DR MCCARTHY Attending Unavailable RUBA, DR MCCARTHY Consulting Unavailable REQUEST, DR TORRE LISTED Primary Care Unavaila ble RUBA, DR MCCARTHY Admitting Unavailable RUBA, DR MCCARTHY Attending Unavailable RUBA, DR MCCARTHY Consulting Unavailable REQUEST, DR TORRE LISTED Primary Care Unavaila susan PETIT, DR FATOU Blair Admitting Unavailrito e DAMASO, DR FATOU Blair Attending Unavailabl e DAMASO, DR FATOU Blair Consulting Unavailabl MATEUS Ash Attending Unavailable LISA, PATI Fields Attending Unavailable Norma RAGLAND, Lg Gruber Attending Unavailable Allergies Allergy Classification Reported Allergen(s) Allergy Type Date of Onset Reaction(s) Facility (1 source) Penicillins Drug allergy (disorder) [facility] Repository Problems Active Problems Problem Classification [...] SCREENING MALIG NEOPLASM CERV] Onset: 12-28-2021 Episodic Spondylosis; intervertebral disc disorders; other back problems (2 sources) Radiculopathy, cervical region; Translations: [Radiculopathy, cervical region] Onset: 09-22-2023 Episodic Substance-related disorders (1 source) Nicotine dependence, [...] 03-16-2022 , QUAL Negative Normal NEGATIVE The [facility] Comment on above: Performed By: #### P REG #### [facility] [address] [place] [address] Dr. Gregg Vale Covid-19 PCR (CVDTBH)on 02-12 SARS-CoV-2 (COVID-19) RNA KELSEA+probe Ql (Unsp spec) Not detected Normal NOT DETECTED [facility] Comment on above: Result Comment: This test is not yet approved or cleared by the [place] FDA. When there are no FDA-approved or cleared tests available, and other criteria are met, FDA can make tests available under an emergency access mechanism called an Emergency Use Authorization (EUA). The EUA for this test is supported by the [place] Fighter of Health and Human Service's (HHS's) declaration [...] SARS-CoV-2. Performed By: #### C VDTB #### [facility] [address] [place] [address] Dr. Gregg Vale PAP ACOG PANEL 2: 30 to 65on 01-04-2022 . . Normal [facility] Comment on above: Result Comment: Perf ormed at: WB Performed By: #### [id number] #### [facility] [address] [place] [address] Dr. Gregg Vale Age Gdln ACOG Testing 30-65 Normal [facility] Comment on above: Performed By: #### 4 [id number] #### [facility] [address] [place] [address] Dr. Gregg Vale DIAGNOSIS: Comment Normal [facility] Comment on above: Result Comment: NEGA TIVE FOR INTRAEPITHELIAL LESION OR MALIGNANCY. Performed at: WB Performed By: #### 4 [id number] #### [facility] [address] [place] [address] Dr. Gregg Vale HPV Aptima Negative Normal Negative [facility] Comment on above: Result Comment: This nucleic acid amplification test detects fourteen high-risk HPV types (16,18,31,33,35,39,45,51,52,56,58,59,66,68) without differentiation. Performed at: =G Performed By: #### [id number] #### [facility] [address] [place] [address] Dr. Gregg Vale Methodology: Comment [facility] Comment on above: Result Comment: This liquid based ThinPrep(R) pap test was screened with the use of an image guided system. Performed at: WB Performed By: #### [id number] #### [facility] [address] [place] [address] Dr. Gregg Vale Note: Comment [facility] Comment on above: Result Comment: The Pap smear is a screening test designed to aid in the detection of premalignant and malignant conditions of the uterine cervix. It is not a diagnostic procedure and should not be used as the sole means of detecting cervical cancer. Both false-positive and false-negative reports do occur. . Performed at: WB Performed By: #### [id number] #### [facility] [address] [place] [address] Dr. Gregg Vale Performed by: Comment Normal [facility] Comment on above: Result Comment: Arabella Escamilla, Assembler Filters (ASCP) Performed at: WB Performed By: #### [id number] #### [facility] [address] [place] [address] Dr. Gregg Vale Specimen adequacy: Comment [facility] Comment on above: Result Comment: Sati sfactory for evaluation. Endocervical and/or squamous metaplastic cells (endocervical component) are present. Performed at: WB Performed By: #### 4 [id number] #### [facility] [address] [place] [address] Dr. Gregg Vale US PELVIS AND TRANSVAGon [...] GERARDO CHAVIRA Date: 2021-11-10 14:15 Normal [facility] Encounters Encounter Date Encounter Type Care Provider Facility Start: 10-09-2023 End: 10-09-2023 ambulatory Lg Green MD Facility:[facility] Start: 09-22-2023 End: 09-22-2023 ambulatory [facility] Start: 06-29-2023 End: 06-29-2023 ambulatory MATEUS CALLE Not Available Start: 03-17-2022 Encounter for preprocedural laboratory examination DR FATOU PETIT [facility] Start: 03-16-2022 End: 03-16-[address] NONE LISTED REQUEST Facility: Start: 03-11-2022 End: 03-12-[address] NONE LISTED REQUEST Facility:[facility] Start: 03-11-2022 End: 03-12-2022 Encounter for preprocedural laboratory examination DR NONE LISTED REQUEST Facility: Start: 12-28-2021 End: 12-28-[address] NONE LISTED REQUEST Facility: Start: 11-10-2021 End: 11-11-[address] NONE LISTED REQUEST Facility: Payers Date Payer Category Payer Private Health Insurance 1975 Unknown [id number] .16.84 [id number] 1975 Unknown [id number] .16.84 [id number] 1975 Unknown [id number] .16.84 [id number] 1975 Unknown [id number] .16.84 [id number] 1975 Unknown [id number] 2.16.84 [id number] 1975 Unknown [id number] 2.16.8 [id number] 1975 Unknown [id number] 2.16. [id number] 1959 Private Health Insurance [id number] Summary Purpose Family History No Family History Records FoundNo Family History Records FoundNo Family History Records FoundNo Family History Records Found Advance Directives No Advanced Directives Records FoundNo Advanced Directives Records FoundNo Advanced Directives Records FoundNo Advanced Directives Records Found Additional Source Comments INFORMATION SOURCE (unrecogn ized section and content) DATE CREATED AUTHOR 03/24/2022 [facility] DATE CREATED AUTHOR AUTHOR'S ORGANIZ ATION 07/01/2023 [facility] EPIC DATE CREATED AUTHOR AUTHOR'S ORGANIZ ATION 09/28/2023 [facility] DATE CREATED AUTHOR AUTHOR'S ORGANIZ ATION 10/13/2023 [facility] FOR RECORDS PERTAINING TO PATIENTS WHO [...] BE BASED ON THE PRIMARY CLINICAL RECORDS. [email or web address] provides no warranty or guarantee of the accuracy or completeness of information in this document.
[2023-10-23 09:22] VITALS: BP 144/96; PULSE 76; TEMP 36.7; O2SAT 99
[2023-10-23] MEDS: BUPIVACAINE HCL 0.25% PF 25 MG/10 ML VIAL INJ (09:54)
[2023-10-23] MEDS: LIDOCAINE HCL 2% 400 MG/20 ML MDV 5 ML INJ (09:55)
[2023-10-23] MEDS: IOHEXOL 240 MG/ML - 10 ML VIAL INJ (09:55)
[2023-10-23] MEDS: DEXAMETHASONE SOD PHOS 10 MG/ML VIAL INJ (09:55)
[2023-10-23 09:56] VITALS: BP 143/89; BP 162/97; PULSE 69; PULSE 81; O2SAT 90; O2SAT 96
--- NOTE | 2023-10-23 09:57 | P.ON_ITS ---
Date of procedure: 10/23/23 Pre-op diagnosis: Pain due to cervical radiculopathy Post-op diagnosis: same as pre-op Procedure: Procedure: Left C5-6, 6-7 transforaminal epidural steroid injection Medications: Bupivacaine 0.25% 1cc, lidocaine 2% 1cc, dexamethasone 10mg The patient was seen and examined in the preoperative holding area.? Informed consent was obtained and placed on the chart.? Patient was brought to the medical procedure unit and placed in the prone position where a timeout was completed verifying the correct patient, procedure site, position, and planned special equipment using sterile aseptic technique.? Under direct fluoroscopic visualization a 25-gauge Quincke tipped spinal needle was advanced to the designated neural foramen where contrast dye was injected to show adequate spread.? The needle was inserted at level left C5-6. There was no evidence of v ascular or adverse uptake.? Epidural spread was appreciated.? The above- mentioned injectate was then placed in a 1.5 mL aliquot preceded by negative aspiration.? The needle was removed. The needle was inserted and the procedure repeated at level left C6-7.? The surgery site was covered.? Patient was taken to the postprocedural recovery area and monitored for an appropriate length of time before found suitable for discharge in the accompaniment of a responsible adult. Anesthesia: Local Surgeon: Lg Green Pathology: none sent Condition: stable Disposition: no change
== END 2023-10-23 10:20 | disposition home or self-care (01) ==
LOC: SURGOUT 08:54
PROVIDERS: PCP Family Medicine; Visit Provider Anesthesiology
DX: M54.12 Radiculopathy, cervical region (principal)
CPT/HCPCS: 64479; 64480; J0665; J1100; Q9966

== ENCOUNTER 2023-11-08 10:45 | Outpatient (OUT) | payer OTHER, SELFPAY ==
--- OUTSIDE RECORDS SUMMARY | 2023-11-08 11:02 | XMS_ITS | CCD ---
Author Organization [facility] Care Team Providers Care Drivers License Examiner Name Role Phone REQUEST, DR NONE LISTED Primary Care Unavaila susan PETIT, DR FATOU Blair Admitting Unavailrito PETIT, DR FATOU Blair Attending Unavailrito PETIT, DR FATOU Blair Consulting Unavailrito e RICH II, BELLA Consulting Unavailable AMARA, ABDI Consulting Unavailable REQUEST, DR TORRE LISTED Primary Care Unavaila ble RUBA, DR MCCARTHY Admitting Unavailable WEST, DR GERARDO Yousif Consulting Unavailable RUBA, DR MCCARTHY Attending Unavailable RUBA, DR MCCARTHY Consulting Unavailable REQUEST, DR TRORE LISTED Primary Care Unavaila ble RUBA, DR MCCARTHY Admitting Unavailable RUBA, DR MCCARTHY Attending Unavailable RUBA, DR MCCARTHY Consulting Unavailable REQUEST, DR TORRE LISTED Primary Care Unavaila susan PETIT, DR FATOU Blair Admitting Unavailrito PETIT, DR FATOU Blair Attending Unavailrito PETIT, DR FATOU Blair Consulting Unavailrito e MATEUS CALLE Attending Unavailable LISA, PATI Fields Attending Unavailable Norma RAGLAND, Lg Gruber Attending Unavailable Norma RAGLAND, Lg Gruber Attending Unavailable Allergies Allergy Classification Reported Allergen(s) Allergy Type Date of Onset Reaction(s) Facility (1 source) Penicillins Drug allergy (disorder) The [facility] Repository Problems Active Problems Problem Classification Problem [...] 03-16-2022 , QUAL Negative Normal NEGATIVE [facility] Comment on above: Performed By: #### P REG #### [facility] [address] [place] [address] Dr. Gregg Vale Covid-19 PCR (CVDTB)on 02-12 SARS-CoV-2 (COVID-19) RNA KELSEA+probe Ql (Unsp spec) Not detected Normal NOT DETECTED [facility] Comment on above: Result Comment: This test is not yet approved or cleared by the [place] FDA. When there are no FDA-approved or cleared tests available, and other criteria are met, FDA can make tests available under an emergency access mechanism called an Emergency Use Authorization (EUA). The EUA for this test is supported by the Wild Animal Caretaker of Health and Human Service's (HHS's) declaration [...] By: #### C VDTB #### [facility] [address] [place] [address] Dr. Gregg Vale PAP ACOG PANEL 2: 30 to 65on 01-04-2022 . . Normal [facility] Comment on above: Result Comment: Perf ormed at: WB Performed By: #### [id number] #### [facility] [address] [place] [address] Dr. Gregg Vale Age Gdln ACOG Testing 30-65 Normal [facility] Comment on above: Performed By: #### [id number] #### [facility] [address] [place] [address] Dr. Gregg Vale DIAGNOSIS: Comment Normal [facility] Comment on above: Result Comment: NEGA TIVE FOR INTRAEPITHELIAL LESION OR MALIGNANCY. Performed at: WB Performed By: #### [id number] #### [facility] [address] [place] [address] Dr. Gregg Vale HPV Aptima Negative Normal Negative [facility] Comment on above: Result Comment: This nucleic acid amplification test detects fourteen high-risk HPV types (16,18,31,33,35,39,45,51,52,56,58,59,66,68) without differentiation. Performed at: =G Performed By: #### [id number] #### [facility] [address] [place] [address] Dr. Gregg Vale Methodology: Comment [facility] Comment on above: Result Comment: This liquid based ThinPrep(R) pap test was screened with the use of an image guided system. Performed at: WB Performed By: #### [id number] #### [facility] [address] [place] [address] Dr. Gregg Vale Note: Comment Normal [facility] Comment on above: Result Comment: The Pap smear is a screening test designed to aid in the detection of premalignant and malignant conditions of the uterine cervix. It is not a diagnostic procedure and should not be used as the sole means of detecting cervical cancer. Both false-positive and false-negative reports do occur. . Performed at: WB Performed By: #### [id number] #### [facility] [address] [place] [address] Dr. Gregg Vale Performed by: Comment Normal [facility] Comment on above: Result Comment: Arabella Escamilla, Liquor Department Manager (ASCP) Performed at: WB Performed By: #### [id number] #### [facility] [address] [place] [address] Dr. Gregg Vale Specimen adequacy: Comment [facility] Comment on above: Result Comment: Sati sfactory for evaluation. Endocervical and/or squamous metaplastic cells (endocervical component) are present. Performed at: WB Performed By: #### [id number] #### [facility] [address] [place] [address] Dr. Gregg Vale US PELVIS AND TRANSVAGon [...] Date: 2021-11-10 14:15 Normal [facility] Encounters Encounter Date Encounter Type Care Provider Facility Start: 10-23-2023 End: 10-23-2023 ambulatory Lg Green MD Facility:[facility] Start: 10-09-2023 End: 10-09-2023 ambulatory Lg Green MD Facility:[facility] Start: 09-22-2023 End: 09-22-2023 ambulatory [facility] Start: 06-29-2023 End: 06-29-2023 ambulatory MATEUS CALLE Not Available Start: 03-17-2022 Encounter for preprocedural laboratory examination DR FATOU PETIT [facility] Start: 03-16-2022 End: 03-16-[address] NONE LISTED REQUEST Facility: Start: 03-11-2022 End: 03-12-[address] NONE LISTED REQUEST Facility: Start: 03-11-2022 End: 03-12-2022 Encounter for preprocedural laboratory examination DR NONE LISTED REQUEST Facility: Start: 12-28-2021 End: 12-28-[address] NONE LISTED REQUEST Facility: Start: 11-10-2021 End: 11-11-[address] NONE LISTED REQUEST Facility: Payers Date Payer Category Payer Private Health Insurance 1975 Unknown [id number] 2.16.84 [id number] 1975 Unknown [id number] 2.16.84 [id number] 1975 Unknown [id number] 2.16.84 [id number] 1973 Unknown [id number] 2.16.84 [id number] 1973 Unknown [id number] 2.16.84 [id number] 1973 Unknown [id number] 2.16.8 [id number] 1973 Unknown [id number] 2.16. [id number] 1973 Unknown [id number] 2.16. [id number] 1961 Private Health Insurance [id number] Summary Purpose Family History No Family History Records FoundNo Family History Records FoundNo Family History Records FoundNo Family History Records Found Advance Directives No Advanced Directives Records FoundNo Advanced Directives Records FoundNo Advanced Directives Records FoundNo Advanced Directives Records Found Additional Source Comments INFORMATION SOURCE (unrecogn ized section and content) DATE CREATED AUTHOR 03/24/2022 [facility] pital DATE CREATED AUTHOR AUTHOR'S ORGANIZ ATION 07/01/2023 [facility] EPIC DATE CREATED AUTHOR AUTHOR'S ORGANIZ ATION 09/28/2023 [facility] DATE CREATED AUTHOR AUTHOR'S ORGANIZ ATION 11/08/2023 [facility] FOR RECORDS PERTAINING TO PATIENTS WHO ARE [...] BE BASED ON THE PRIMARY CLINICAL RECORDS. [facility] [employer] provides no warranty or guarantee of the accuracy or completeness of information in this document.
--- NOTE | 2023-11-08 11:04 | PM.CN ---
Consult Note: HPI Data of Consult Patient: new to practice Consult date: 10/09/23 Requesting Physician: Rosa Geronimo NP Primary Care Provider: Luis Armando Carballo MD Consult Narrative Reason for consult: neck, left arm pain Narrative: 48yof who presents for evaluation. longstanding history of neck and left arm pain. was evaluated by surgeon, who recommended surgery, but she would like to avoid if possible. imaging reviewed, which shows multilevel disc bulging and resultant stenosis from c4 to c7. has engaged in chiropractic therapy, but this has exacerbated her symptoms. continues in a series of provider directed home exercises >6 weeks, without benefit. uses meloxicam and zanaflex. denies adverse med side effects. patient recently underwent left C5/6 C6/7 TFESI with >80% improvement ongoing, patient reports 100% improvement in her pain but continues to have numbness to last two digits on left hand. cc:: CC: Rosa Geronimo NP Review of Systems ROS Status of ROS 10 or more systems reviewed and unremarkable except as noted in history and below Musculoskeletal Denies: neck pain PFSH PFSH Medical History (Updated 10/09/23 @ 15:56 by Lg Green MD) Degenerative disc disease Surgical History History of endometrial ablation ?Z98.890 - Other specified postprocedural states (ICD-10) Social History Smoking status: Current every day smoker Meds Home Medications and Allergies Home Medications ?Medication ?Instructions ?Recorded ?Confirmed ?Type meloxicam 15 mg tablet 15 mg PO DAILY 10/09/23 10/23/23 History tizanidine 4 mg tablet 8 mg PO BEDTIME PRN muscle 10/09/23 10/23/23 History spasticity Allergies Allergy/AdvReac Type Severity Reaction Status Date / Time Penicillins Allergy Hives Verified 10/23/23 09:20 Exam Constitutional Documenting provider has reviewed patient's vital signs: yes Common normals: no apparent distress, oriented x3, healthy appearing, alert and well nourished General appearance: cooperative HENMT Common normals: normocephalic, hearing grossly normal bilaterally and moist oral mucous membranes Head and scalp: normocephalic Eye Common normals: PERRL Pupil: PERRL Neck & C-Spine Common normals: full ROM General: normal visual inspection Cervical spine: cervical ROM normal and normal cervical lordosis; cervical ROM not abnormal, no pain with cervical ROM and no paracervical muscle spasm Other: negative Spurlings sensation intact to BUE strength 5/5 in BUE intermittent numbness to 4th and 5th digit of left hand Chest Common normals: inspection of chest normal Respiratory Common normals: normal respiratory effort, no retractions and no use of accessory muscles Neuro Common normals: oriented x3, CN's II-XII intact bilaterally, moves all extremities, no focal motor deficits, no sensory deficits noted and deep tendon reflexes 2+ bilaterally Sensorium/orientation: alert Motor exam: strength 5/5 throughout and no movement abnormalities noted Psych Common normals: mental status grossly normal, thought process normal, cooperative, affect normal, speech normal and activity/motor behavior normal Speech: normal speech Thought process: normal thought process Assessment and Plan Assessment and Plan (1) Cervical radiculopathy: (2) Cervical stenosis of spinal canal: Plan stop mobic at this time as patient is no longer having pain, can resume PRN if pain worsens. risks vs benefits of [facility] NSAIDs reviewed decrease tizanidine 4-8mg PRN pain/spasms can stop PT at this time f/u 3 months, sooner if needed
== END 2023-11-08 10:46 | disposition home or self-care (01) ==
LOC: PM 10:46
PROVIDERS: PCP Family Medicine; Visit Provider Nurse Practitioner
DX: M54.12 Radiculopathy, cervical region (principal); M48.02 Spinal stenosis, cervical region
CPT/HCPCS: G0463

== ENCOUNTER 2024-01-31 10:38 | Outpatient (OUT) | payer OTHER, SELFPAY ==
--- OUTSIDE RECORDS SUMMARY | 2024-01-31 10:45 | XMS_ITS | CCD ---
Author Organization [facility] Care Team Providers Care Manager Advanced Name Role Phone REQUEST, DR NONE LISTED [...] Attending Unavailrito PETIT, DR FATOU Blair Consulting UnavailMATEUS Cruz Attending Unavailable LISA, PATI Fields Attending Unavailable Norma RAGLAND, Lg Gruber Attending Unavailable Norma RAGLAND, Lg Gruber Attending Unavailable Allergies Allergy Classification Reported Allergen(s) Allergy Type Date of Onset Reaction(s) Facility (1 source) Penicillins Drug allergy (disorder) [facility] Repository Problems Active Problems Problem Classification [...] 03-16-2022 , QUAL Negative Normal NEGATIVE [facility] Comment on above: Performed By: #### P REG #### [facility] [address] [place] [address] Dr. Gregg Vale Covid-19 PCR (CVDTB)on 02-12 SARS-CoV-2 (COVID-19) RNA KELSEA+probe Ql (Unsp spec) Not detected Normal NOT DETECTED [facility] Comment on above: Result Comment: This test is not yet approved or cleared by the [place] FDA. When there are no FDA-approved or cleared tests available, and other criteria are met, FDA can make tests available under an emergency access mechanism called an Emergency Use Authorization (EUA). The EUA for this test is supported by the Auto Glass Installer of Health and Human Service's (HHS's) declaration [...] SARS-CoV-2. Performed By: #### C VDTB #### [facility] [address] [place] [address] Dr. Gregg Vale PAP ACOG PANEL 2: 30 to 65on 01-04-2022 . . Normal [facility] Comment on above: Result Comment: Perf ormed at: WB Performed By: #### [id number] #### [facility] [address] [place] [address] Dr. Gregg Vale Age Gdln ACOG Testing 30-65 Normal [facility] Comment on above: Performed By: #### [id number] #### [facility] [address] [place] [address] Dr. Gregg Vale DIAGNOSIS: Comment Normal [facility] Comment on above: Result Comment: NEGA TIVE FOR INTRAEPITHELIAL LESION OR MALIGNANCY. Performed at: WB Performed By: #### [id number] #### [facility] [address] [place] [address] Dr. Gregg Vale HPV Aptima Negative Normal Negative [facility] Comment on above: Result Comment: This nucleic acid amplification test detects fourteen high-risk HPV types (16,18,31,33,35,39,45,51,52,56,58,59,66,68) without differentiation. Performed at: =G Performed By: #### [id number] #### [facility] [address] [place] [address] Dr. Gregg Vale Methodology: Comment [facility] Comment on above: Result Comment: This liquid based ThinPrep(R) pap test was screened with the use of an image guided system. Performed at: WB Performed By: #### [id number] #### [facility] [address] [place] [address] Dr. Gregg Vale Note: Comment Normal [facility] Comment on above: Result Comment: The Pap smear is a screening test designed to aid in the detection of premalignant and malignant conditions of the uterine cervix. It is not a diagnostic procedure and should not be used as the sole means of detecting cervical cancer. Both false-positive and false-negative reports do occur. . Performed at: WB Performed By: #### [id number] #### [facility] [address] [place] [address] Dr. Gregg Vale Performed by: Comment Normal [facility] Comment on above: Result Comment: Arabella Escamilla, Casing Flusher (ASCP) Performed at: WB Performed By: #### [id number] #### [facility] [address] [place] [address] Dr. Gregg Vale Specimen adequacy: Comment [facility] Comment on above: Result Comment: Sati sfactory for evaluation. Endocervical and/or squamous metaplastic cells (endocervical component) are present. Performed at: WB Performed By: #### [id number] #### [facility] [address] [place] [address] Dr. Gregg Vale US PELVIS AND TRANSVAGon [...] GERARDO CHAVIRA Date: 2021-11-10 14:15 Normal [facility] Encounters Encounter Date Encounter Type Care Provider Facility Start: 10-23-2023 End: 10-23-2023 ambulatory Lg Green MD Facility:[facility] Start: 10-09-2023 End: 10-09-2023 ambulatory Lg Green MD Facility:[facility] Start: 09-22-2023 End: 09-22-2023 ambulatory [facility] Ambulatory Start: 06-29-2023 End: 06-29-2023 ambulatory MATEUS CALLE Not Available Start: 03-17-2022 Encounter for preprocedural laboratory examination DR FATOU PETIT [facility] Start: 03-16-2022 End: 03-16-[address] [...] Category Payer Private Health Insurance 1975 Unknown [id number] 2.16.84 [id number] 1975 Unknown [id number] 2.16.84 [id number] 1975 Unknown [id number] 2.16.84 [id number] 1973 Unknown [id number] 2.16.84 [id number] 1973 Unknown [id number] 2.16.84 [id number] 1973 Unknown [id number] 2.16.8 [id number] 1973 Unknown [id number] 2.16. [id number] 1975 Unknown [id number] 2.16. [id number] 1959 Private Health Insurance [id number] Summary Purpose Family History No Family History Records FoundNo Family History Records FoundNo Family History Records FoundNo Family History Records Found Advance Directives No Advanced Directives Records FoundNo Advanced Directives Records FoundNo Advanced Directives Records FoundNo Advanced Directives Records Found Additional Source Comments INFORMATION SOURCE (unrecogn ized section and content) DATE CREATED AUTHOR 03/24/2022 [facility] pital DATE CREATED AUTHOR AUTHOR'S ORGANIZ ATION 07/01/2023 [facility] EPIC DATE CREATED AUTHOR AUTHOR'S ORGANIZ ATION 09/28/2023 [facility] Ambulatory DATE CREATED AUTHOR AUTHOR'S ORGANIZ ATION 11/08/[address] [facility] FOR RECORDS PERTAINING TO PATIENTS WHO [...] BE BASED ON THE PRIMARY CLINICAL RECORDS. [facility] [employer] provides no warranty or guarantee of the accuracy or completeness of information in this document.
--- NOTE | 2024-01-31 10:59 | P.CN_ITS ---
Consult Note: HPI Data of Consult Patient: new to practice Consult date: 10/09/23 Requesting Physician: Rosa Geronimo NP Primary Care Provider: Luis Armando Carballo MD Consult Narrative Reason for consult: neck, left arm pain Narrative: 48yof who presents for evaluation. longstanding history of neck and left arm pain. was evaluated by surgeon, who recommended surgery, but she would like to avoid if possible. imaging reviewed, which shows multilevel disc bulging and resultant stenosis from c4 to c7. has engaged in chiropractic therapy, but this has exacerbated her symptoms. continues in a series of provider directed home exercises >6 weeks, without benefit. uses meloxicam and zanaflex. denies adverse med side effects. patient recently underwent left C5/6 C6/7 TFESI with >80% improvement ongoing, patient reports 100% improvement in her pain but continues to have numbness to last two digits on left hand. cc:: CC: Rosa Geronimo NP Review of Systems ROS Status of ROS 10 or more systems reviewed and unremark able except as noted in history and below Musculoskeletal Denies: neck pain or extremity pain PFSH PFSH Medical History (Updated 10/09/23 @ 15:56 by Lg Green MD) Degenerative disc disease Surgical History History of endometrial ablation ?Z98.890 - Other specified postprocedural states (ICD-10) Social History Smoking status: Current every day smoker Meds Home Medications and Allergies Home Medications ?Medication ?Instructions ?Recorded ?Confirmed ?Type meloxicam 15 mg tablet 15 mg PO DAILY 10/09/23 10/23/23 History tizanidine 4 mg tablet 8 mg PO BEDTIME PRN muscle 10/09/23 10/23/23 History spasticity Allergies Allergy/AdvReac Type Severity Reaction Status Date / Time Penicillins Allergy Hives Verified 10/23/23 09:20 Exam Constitutional Documenting provider has reviewed patient's vital signs: yes Common normals: no apparent distress, oriented x3, healthy appearing, alert and well nourished General appearance: cooperative HENMT Common normals: normocephalic, hearing grossly normal bilaterally and moist oral mucous membranes Head and scalp: normocephalic Eye Common normals: PERRL Pupil: PERRL Neck & C-Spine Common normals: full ROM General: normal visual inspection Cervical spine: cervical ROM normal and normal cervical lordosis; cervical ROM not abnormal, no pain with cervical ROM and no paracervical muscle spasm Other: negative Spurlings sensation intact to BUE strength 5/5 in BUE intermittent numbness to 4th and 5th digit of left hand Chest Common normals: inspection of chest normal Respiratory Common normals: normal respiratory effort, no retractions and no use of accessory muscles Neuro Common normals: oriented x3, CN's II-XII intact bilaterally, moves all extremities, no focal motor deficits, no sensory deficits noted and deep tendon reflexes 2+ bilaterally Sensorium/orientation: alert Motor exam: strength 5/5 throughout and no movement abnormalities noted Psych Common normals: mental status grossly normal, thought process normal, cooperative, affect normal, speech normal and activity/motor behavior normal Speech: normal speech Thought process: normal thought process Assessment and Plan Assessment and Plan (1) Cervical radiculopathy: (2) Cervical stenosis of spinal canal: Plan pain well controlled continue medicataions through PCP f/u PRN
== END 2024-01-31 10:39 | disposition home or self-care (01) ==
LOC: PM 10:39
PROVIDERS: PCP Family Medicine; Visit Provider Nurse Practitioner
DX: M54.12 Radiculopathy, cervical region (principal); M48.02 Spinal stenosis, cervical region
CPT/HCPCS: G0463

== ENCOUNTER 2024-02-28 10:14 | Outpatient (OUT) | payer OTHER, SELFPAY ==
--- NOTE | 2024-02-28 10:30 | CT_ITS ---
[address] [address] Patient Name: BELL BANKS MRN: [id number] date: 1975 Sex: F Assigned Patient Location: CT Current Patient Location: Accession/Order Number: [id number] Exam Date: 02/28/2024 10:25 Report Date: 02/29/2024 05:16 At the request of: NITESH CHRISTIAN Procedure: CT lung screening low-dose EXAMINATION: CT lung screening low-dose HISTORY: Smoker COMPARISON: No relevant comparison available. TECHNIQUE: Axial, Coronal, and Sagittal images were created without the administration of IV contrast material. Dose reduction techniques were achieved by using automated exposure control and/or adjustment of mA and/or kV according to patient size and/or use of iterative reconstruction technique. FINDINGS: LUNGS: Trace amount of discoid atelectasis versus scarring within posterior left lung base. No suspicious nodules. PLEURA: No mass, effusion, or pneumothorax. VASCULATURE: No abnormality. YEHUDA: No mass or pathologic adenopathy. MEDIASTINUM: No mass or pathologic adenopathy. CARDIAC: No enlargement, pericardial thickening, or pericardial effusion. Coronary Artery calcifications: AORTA: No aneurysm or dissection. CHEST WALL: No mass or axillary adenopathy BONES: No bone lesion or fracture. LIMITED ABDOMEN: No suspicious findings. Limited images of the upper abdomen. OTHER: Negative. CT/CT lung screening low-dose IMPRESSION: 1. Lung-RADS Category 1 Negative. No nodules and definitely benign nodules. Continue annual screening with LDCT in 12 months. Electronically authenticated by: MANJU LEON Date: 02/29/2024 05:16
== END 2024-02-28 10:15 | disposition home or self-care (01) ==
LOC: CT 10:14
PROVIDERS: PCP Family Medicine; Visit Provider Family Medicine
DX: J44.9 Chronic obstructive pulmonary disease, unspecified (principal); F17.200 Nicotine dependence, unspecified, uncomplicated; G47.00 Insomnia, unspecified; F41.9 Anxiety disorder, unspecified; R03.0 Elevated blood-pressure reading, without diagnosis of hypertension
CPT/HCPCS: 36415; 71271; 80053; 84436; 84443; 84481; 85025; 86376; 86800

== ENCOUNTER 2024-02-28 10:37 | Outpatient (OUT) | payer OTHER, SELFPAY ==
--- OUTSIDE RECORDS SUMMARY | 2024-02-28 10:53 | XMS_ITS | CCD ---
Author Organization [facility] Care Team Providers Care Mineral Mixer Name Role Phone REQUEST, DR NONE LISTED Primary Care Unavailosvaldo PETIT, DR FATOU Blair Admitting Unavailrito PETIT, [...] Blair Consulting UnavailMATEUS Cruz Attending Unavailable LISA, EMIR Fields Attending Unavailable Norma RAGLAND, Lg Gruber Attending Unavailable Norma RAGLAND, Lg Gruber Attending Unavailable Unavailable Primary Care Provider Unavailrito e Allergies Allergy Classification Reported Allergen(s) Allergy Type Date of Onset Reaction(s) Facility (1 source) Penicillins Drug allergy (disorder) [facility] Medications Current Medications Medication Drug Class(es) Dates Sig (Normalized) Sig (Original) meloxicam 15 mg oral tablet (1 source) Nonsteroidal Anti-inflammatory Drug take 1 tablet by mouth once daily meloxicam (Mobic) 15 mg tablet Take 1 tablet (15 mg) by mouth once daily. Active tiZANidine 4 mg oral capsule (1 source) Central alpha-2 Adrenergic Agonist tiZANidine (Zanaflex) 4 mg capsule Take 1 capsule (4 mg) by mouth. Active Problems Active Problems Problem Classification Problem Date Documented Davey lux Episodic/Chronic Abdominal pain (8 sources) Generalized abdominal [...] Spondylosis; intervertebral disc disorders; other back problems (3 sources) Radiculopathy, cervical region; Translations: [Cervical radiculopathy] Onset: 09-22-2023 Episodic Substance-related disorders (1 source) [...] OVARIAN CYST LEFT SIDE] Onset: 11-11-2021 Episodic Unclassified (1 source) Onset: 09-22-2023 09-22-2023 Results Test Name Value Interpretation Reference Range Facil ity PREG HCG QUALon 03-16-2022 , QUAL Negative Normal NEGATIVE [facility] Comment on above: Performed By: #### P REG #### [facility] [address] [place], [place] [address] Dr. Gregg Vale Covid-19 PCR ([facility])on 02-12 SARS-CoV-2 (COVID-19) RNA KELSEA+probe Ql (Unsp spec) Not detected Normal NOT DETECTED [facility] Comment on above: Result Comment: This test is not yet approved or cleared by the [place] FDA. When there are no FDA-approved or cleared tests available, and other criteria are met, FDA can make tests available under an emergency access mechanism called an Emergency Use Authorization (EUA). The EUA for this test is supported by the Warper Tender of Health and Human Service's (HHS's) declaration [...] consistent with SARS-CoV-2. Performed By: #### C VDTBH #### [facility] [address] [place], [place] [address] Dr. Gregg Vale PAP ACOG PANEL 2: 30 to 65on 01-04-2022 . . Normal [facility] Comment on above: Result Comment: Perf ormed at: WB Performed By: #### [id number] #### [facility] [address] [place], [place] [address] Dr. Gregg Vale Age Gdln ACOG Testing 30-[address] [facility] Comment on above: Performed By: #### [id number] #### [facility] [address] [place] [place] [address] [address] Gregg Vale DIAGNOSIS: Comment Normal [facility] Comment on above: Result Comment: NEGA TIVE FOR INTRAEPITHELIAL LESION OR MALIGNANCY. Performed at: WB Performed By: #### [id number] #### [facility] [address] [place] [address] [address] Gregg Vale HPV Aptima Negative Normal Negative [facility] Comment on above: Result Comment: This nucleic acid amplification test detects fourteen high-risk HPV types (16,18,31,33,35,39,45,51,52,56,58,59,66,68) without differentiation. Performed at: =G Performed By: #### [id number] #### [facility] [address] [place] [address] Dr. Gregg Vale Methodology: Comment Normal [facility] Comment on above: Result Comment: This liquid based ThinPrep(R) pap test was screened with the use of an image guided system. Performed at: WB Performed By: #### [id number] #### [facility] [address] [place] [address] Dr. Gregg Vale Note: Comment Normal [facility] Comment on above: Result Comment: The Pap smear is a screening test designed to aid in the detection of premalignant and malignant conditions of the uterine cervix. It is not a diagnostic procedure and should not be used as the sole means of detecting cervical cancer. Both false-positive and false-negative reports do occur. . Performed at: WB Performed By: #### [id number] #### [facility] [address] [place] [address] [address] Gregg Vale Performed by: Comment Normal [facility] Comment on above: Result Comment: Arabella Escamilla, Medical I D Sales (ASCP) Performed at: WB Performed By: #### [id number] #### [facility] [address] [place] [address] Dr. Gregg Vale Specimen adequacy: Comment Normal [facility] Comment on above: Result Comment: Sati sfactory for evaluation. Endocervical and/or squamous metaplastic cells (endocervical component) are present. Performed at: WB Performed By: #### [id number] #### [facility] [address] [place] [address] Dr. Gregg Vale US PELVIS AND TRANSVAGon [...] GERARDO CHAVIRA Date: 2021-11-10 14:15 Normal [facility] Vital Signs Date Time Vital Sign Value Performing Clinician Facility 09-22-2023 11:22040 Body height 175.3 cm Emir Lopez MD Work Phone: [facility] 09-22-2023 11:22-0400 Body mass index (BMI) [Ratio] 25.84 kg/m2 Emir Lopez MD Work Phone: [facility] 09-22-2023 11:22-040 Body temperature 97.5 [degF] Emir Lopez MD Work Phone: [facility] 09-22-2023 11:22-040 Body weight 79.38 kg Emir Lopez MD Work Phone: [facility] 09-22-2023 11:22-040 Diastolic blood pressure 78 mm[Hg] Emir Lopez MD Work Phone: [facility] 09-22-2023 11:22-040 Heart rate 105 /min Emir Lopez MD Work Phone: [facility] 09-22-2023 11:22-0400 Systolic blood pressure 124 mm[Hg] Emir Lopez MD Work Phone: [facility] Encounters Encounter Date Encounter Type Care Provider Facility Start: 10-23-2023 End: 10-23-2023 ambulatory Lg Green MD Facility:[facility] Start: 10-09-2023 End: 10-09-2023 ambulatory Lg Green MD Facility:[facility] Start: 09-22-2023 End: 09-22-2023 Office outpatient new 45 minutes Emir Lopez MD Work Phone: [facility] Comment on above: Cervical radiculopat hy (Primary Dx) Start: 09-22-2023 End: 09-22-2023 ambulatory EMIR LOPEZ [facility] Start: 06-29-2023 End: 06-29-2023 ambulatory MATEUS CALLE Not Available Start: 03-17-2022 Encounter for preprocedural laboratory examination DR FATOU PETIT [facility] Start: 03-16-2022 End: 03-16-[address] NONE LISTED REQUEST Facility:[facility] Start: 03-11-2022 End: 03-12-[address] NONE LISTED REQUEST Facility:[facility] Start: 03-11-2022 End: 03-12-2022 Encounter for preprocedural laboratory examination DR NONE LISTED REQUEST Facility:[facility] Start: 12-28-2021 End: 12-28-[address] NONE LISTED REQUEST Facility:[facility] Start: 11-10-2021 End: 11-11-[address] NONE LISTED REQUEST Facility:[facility] Plan of Treatment Date Care Activity Detail Author Start: 11-12-2023 Influenza vaccination Influenza Vaccine (#1) [facility] Start: 2023 Zoster Vaccines (1 of 2) Zoster Vaccines (1 of 2) [facility] Start: 11-11-2022 COVID-19 Vaccine ( season) COVID-19 Vaccine ( season) [facility] Start: 2013 Screening for malignant neoplasm of breast Mammogram [facility] Start: 1995 DTaP/Tdap/Td Vaccines (1 - Tdap) DTaP/Tdap/Td Vaccines (1 - Tdap) [facility] Start: 1994 Screening for malignant neoplasm of cervix [facility] Start: 02-24-1992 Hepatitis B Vaccines (1 of 3 - 19+ 3-dose series) Hepatitis B Vaccines (1 of 3 - 19+ 3-dose series) [facility] Start: 1991 Diabetes mellitus screening Diabetes Screening [facility] Start: 1991 Hepatitis C screening Hepatitis C Screening [facility] Start: 1979 Pneumococcal Vaccine: Pediatrics (0 to 5 Years) and At-Risk Patients (6 to 64 Years) (1 of 2 - PCV) Pneumococcal Vaccine: Pediatrics (0 to 5 Years) and At-Risk Patients (6 to 64 Years) (1 of 2 - PCV) [facility] Start: 1974 MMR Vaccines (1 of 1 - Standard series) MMR Vaccines (1 of 1 - Standard series) [facility] Start: 1973 HIV screening HIV Screening [facility] Start: 1973 Lipid panel Lipid Panel [facility] Start: 1973 Screening for malignant neoplasm of colon [facility] Start: 1973 Yearly Adult Physical Yearly Adult Physical [facility] Payers Date Payer Category Payer Private Health Insurance 1975 Unknown [id number] [id number] [id number] 1975 Unknown [id number] [id number] [id number] 1975 Unknown [id number] 2.16.84 [id number] 1975 Unknown [id number] 2.16.84 [id number] 1975 Unknown [id number] 2.16.84 [id number] 1975 Unknown [id number] 2.16.8 [id number] 1975 Unknown [id number] [id number]. [id number] 1975 Unknown [id number] [id number]. [id number] 1961 Private Health Insurance [facility] [id number] Social History Date Type Detail Facility Start: 09-22-[address] [facility] Work Phone: History of tobacco use Cigarette Smoker [facility] Work Phone: Start: 09-22-2023 Alcoholic beverage intake Current drinker of alcohol (finding) [facility] Work Phone: Start: 09-22-2023 History of Social function [facility] Work Phone: Start: 09-22-2023 Tobacco use panel [facility] Work Phone: Start: 1975 Sex assigned at Not on file [facility] Work Phone: Start: 09-12-2023 End: 09-22-2023 Exposure to SARS-CoV-2 (event) Not sure [facility] History of Present illness Narrative 09-22-2023 Emir Lopez MD - 09/22/2023 11:00 AM EDT Note Date & Type Note Facility 09-22-2023 History of Present illness Narrative Images from the original note were not included. [facility] [place] Department of Neurological Surgery New Patient Visit History of Present Illness: Jackie Scott is a 48 y.o. year old female who presents to the spine clinic with left Intermittent left rating down to her third fourth and fifth digits which has worsened in the past few months. She was given meloxicam and tizanidine which helped significantly but she been having worsening at night. She is also having left thenar and hypothenar atrophy as well. No weakness or numbness or bowel bladder issues. She does not take any blood thinners. She does smoke half pack a day. She has not tried physical therapy or pain management as of yet. No antiplatelets or anticoagulation use Prior Spine Surgeries: No Physical Therapy: No Diabetic: No Osteoporosis: No Patient's BMI is Body mass index is 25.84 kg/m . Review of Systems: Negative other than HPI There is no problem list on file for this patient. No past medical history on file. No past surgical history on file. Social History Tobacco Use Smoking status: Every Day Types: Cigarettes Smokeless tobacco: Not on file Substance Use Topics Alcohol use: Yes family history is not on file. Current Outpatient Medications: meloxicam (Mobic) 15 mg tablet, Take 1 tablet (15 mg) by mouth once daily., Disp: , Rfl: tiZANidine (Zanaflex) 4 mg capsule, Take 1 capsule (4 mg) by mouth., Disp: , Rfl: No Known Allergies Physical Examination General: Well developed, awake/alert/oriented x3, no distress, alert and cooperative Skin: Warm and dry, no lesions, no rashes ENMT: Mucous membranes moist, no apparent injury, no lesions seen Head/Neck: Neck Supple, no apparent injury Respiratory/Thorax: Normal breath sounds with good chest expansion, thorax symmetric Cardiovascular: No pitting edema, no JVD Motor 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 Sensation: intact to light touch Intact Results I personally reviewed and interpreted the imaging results which included MRI C-spine showing left severe C5-6 foraminal stenosis, left-sided severe left C6-7 foraminal stenosis, left severe C6-7 T1 foraminal stenosis. Upright x-ray showing C5-6 C6-7 disc collapse and spondylotic disease and reactive osteophytes forming. Assessment and Plan: Jackie Scott is a 48 y.o. year old female who presents to the spine clinic with left arm cervical radiculopathy as evidenced by left arm pain in thenar atrophy. Imaging concerning for multilevel foraminal stenosis though left side C7 and T1 looks like the worst level. I am referring patient to physical therapy as well as pain management for perspective cervical epidural injection. I have also counseled her to stop smoking in the chance that she requires surgery if she is refractory to the conservative management. been prepared under the direction and in the presence of Emir Lopez MD. I saw and evaluated the patient. I personally obtained the mccann and critical portions of the history and physical exam or was physically present for mccann and critical portions performed by the Resident/Fellow. I reviewed the documentation and discussed the patient with the Resident/Fellow. I agree with the Resident/Fellow s medical decision making as documented in the note. I have reviewed all prior documentation and reviewed the electronic medical record since admission. I have personally have reviewed all advanced imaging not just the reports and used my interpretation as documented as the relevant findings. I have reviewed the risks and benefits of all treatment recommendations listed in this note with the patient and family. I spent a total of 45 minutes in service to this patient's care during this date of service. Emir Lopez MD, [facility] Spine Mold Yard Worker, [facility] Dom Arreaga and Alicia Arreaga Chair in Spinal Neurosurgery Neurosurgery Lightning Rod Installer, [facility] Spine Surgery Fellowship Director High [employer] Foreign Language Teacher of Neurological Surgery [employer] Office: documented in this encounter [facility] Work Phone: Evaluation note Note Date & Type Note Facility Evaluation note Diagnosis Cervical radiculopathy- Primary Brachial neuritis or radiculitis nos documented in this encounter [facility] Work Phone: Reason for referral (narrative) Consultation (Routine) - Authorized Note Date & Type Note Facility Reason for referral (narrati ve) Specialty Diagnoses / Procedures Referred By Contact Referred To Contact Physical Medicine and Rehabilitation / Pain Medicine Diagnoses [place] [id number] [place] [address] Liz Schmitt MD [address] [facility] [address] [place] [address] Referral ID Status Reason Start Date Expiration Date Visits Requested Visits Authorized [id number] Authorized Specialty Services Required 09/22/2023 09/21/2024 1 1 * Consultation (Routine) - Pending Review Specialty Diagnoses / Procedures Referred By Contac t Referred To Contact Physical Therapy Diagnoses [place] [id number] [place], [place] [id number] Referral ID Status Reason Start Date Expiration Date Visits Requested Visits Authorized [id number] Pending Review Specialty Services Required 09/22/2023 09/21/2024 1 1 [facility] Work Phone: Summary Purpose Family History No Family History Records FoundNo Family History Records FoundNo Family History Records FoundNo Family History Records Found Advance Directives No Advanced Directives Records FoundNo Advanced Directives Records FoundNo Advanced Directives Records FoundNo Advanced Directives Records Found Additional Source Comments INFORMATION SOURCE (unrecogn ized section and content) DATE CREATED AUTHOR 03/24/2022 [facility] pital DATE CREATED AUTHOR AUTHOR'S ORGANIZ ATION 07/01/2023 [facility] EPIC DATE CREATED AUTHOR AUTHOR'S ORGANIZ ATION 09/28/2023 [facility] DATE CREATED AUTHOR AUTHOR'S ORGANIZ ATION 11/08/2023 [facility] Reason for Visit (unrecogniz ed section and content) Reason Comments New Patient Visit Pt here for cervical issues. She is not experiencing any pain. FOR RECORDS PERTAINING TO PATIENTS WHO ARE [...] BE BASED ON THE PRIMARY CLINICAL RECORDS. [facility]. provides no warranty or guarantee of the accuracy or completeness of information in this document.
[2024-02-28 11:16] LABS: Basophils Percent Auto 0.5 % (0.2-2.0); Eosinophils Absolute Auto 0.1 10^3/uL (0.0-0.7); Eosinophils Percent Auto 1.7 % (0.9-7.0); Hematocrit 44.2 % (36.0-48.0); Hemoglobin 14.8 g/dL (12.0-16.0); Immature Granulocytes Abs Auto 0.01 10^3/uL (0.00-0.03); Immature Granulocytes Pct Auto 0.2 % (0.0-0.5); Lymphocytes Absolute Auto 1.4 10^3/uL (1.2-3.8); Lymphocytes Percent Auto 21.4 % (20.5-60.0); Mean Corpuscular HGB Conc 33.5 g/dL (29.9-35.2); Mean Corpuscular Hemoglobin 32.7 pg (26.7-34.0); Mean Corpuscular Volume 97.6 fL (81.0-99.0); Mean Platelet Volume 9.8 fL (9.5-13.5); Monocytes Absolute Auto 0.4 10^3/uL (0.3-0.8); Monocytes Percent Auto 6.9 % (1.7-12.0); Neutrophils Absolute Auto 4.4 10^3/uL (1.4-6.5); Neutrophils Percent Auto 69.3 % (43.0-75.0); Platelet Count 176 10^3/uL (150-450); Red Blood Count 4.53 10^6/uL (4.20-5.40); Red Cell Distribution Width 11.9 % (11.0-15.0); White Blood Count 6.4 10^3/uL (4.0-11.0)
[2024-02-28 12:41] LABS: Alanine Aminotransferase 15 U/L (14-59); Albumin Level 3.6 g/dL (3.4-5.0); Alkaline Phosphatase 84 U/L (46-116); Anion Gap 10.2; Aspartate Amino Transferase 17 U/L (15-37); BUN Creatinine Ratio 16.5; Bilirubin Total 0.7 mg/dL (0.2-1.0); Calcium 9.5 mg/dL (8.5-10.1); Carbon Dioxide 31.7 mmol/L (21.0-32.0); Chloride 104 mmol/L (98-107); Estimated GFR (African America >60 (>=60 mL/min/1.73m^2); Estimated GFR (Non-African Ame >60 (>=60 mL/min/1.73m^2); Free T3 3.17 pg/mL (2.18-3.98); Globulin 3.6 g/dL; Glucose 96 mg/dL (74-106); Potassium 3.9 mmol/L (3.5-5.1); Sodium 142 mmol/L (136-145); Thyroid Stimulating Hormone 1.815 uIU/mL (0.358-3.740); Total Protein 7.2 g/dL (6.4-8.2)
[2024-02-29 14:10] LABS: Thyroglobulin Antibody <1.0 IU/mL (0.0-0.9); Thyroid Peroxidase (TPO) Ab 18 IU/mL (0-34)
== END 2024-02-28 10:38 | disposition home or self-care (01) ==
LOC: LAB 10:39
PROVIDERS: PCP Family Medicine; Visit Provider Family Medicine
DX: G47.00 Insomnia, unspecified (principal); F41.9 Anxiety disorder, unspecified; R03.0 Elevated blood-pressure reading, without diagnosis of hypertension; F17.200 Nicotine dependence, unspecified, uncomplicated; J44.9 Chronic obstructive pulmonary disease, unspecified
CPT/HCPCS: 36415; 80053; 84436; 84443; 84481; 85025; 86376; 86800